=== PATIENT | male | born 1965 ===

== ENCOUNTER 2024-04-01 08:45 | Day surgery (SDC) | payer BC ==
[~2024-04-01] VITALS: Ht 165.1 cm; Wt 76.3 kg
[~2024-04-01 08:45] MED LIST: Keflex500 MG PO; Lactated Ringer's 1,000 ML IV ONE; Lidocaine 1%-Epineph 1:100000 20 ML MDV ONE; Norco 5-325 Ta1 EACH PO; OMEP20ER PO; Prilosec Otc20 MG; TAMS.4ER
[2024-04-01] MEDS ORDERED: ATOR20 PO (09:24)
[2024-04-01] MEDS ORDERED: MELO7.5 PO (09:24)
[2024-04-01] MEDS ORDERED: EUTHYROX25 MC1 PO (09:24)
[2024-04-01] MEDS ORDERED: Lactated Ringer's 1,000 ML IV ONE (09:26)
--- NOTE | 2024-04-01 09:41 | NUR ---
04/01/24 0941 Ivonne Khan TIME OUT AT 0938 TO VERIFY CORRECT PT, PROCEDURE, LOCATION, ALLERGIES AND MEDICATION. PT ELECTED TO PROCEED WITH BLOCK. END AT 0940, 10CC USED. PT TOLERATED WELL
[2024-04-01] MEDS ORDERED: FentaNYL Citrate 50 MCG/ML 2 ML Injection ONE (10:35)
[2024-04-01] MEDS ORDERED: propofoL 20 ML IV ONE (10:36)
[2024-04-01] MEDS ORDERED: Ketorolac Tromethamine 30mg Vial ONE (10:36)
[2024-04-01] MEDS ORDERED: Dexamethasone Sod Phos 10 MG/ML 1ML VIAL ONE (10:36)
[2024-04-01] MEDS ORDERED: Ondansetron HCl 2 MG / ML 2ML Vial ONE (10:36)
--- NOTE | 2024-04-01 13:40 | NUR ---
04/01/24 5212 Gaston Peng PT INSTRUCTED TO MONITOR B/P AT HOME, AND FOLLOW UP WITH PCP IF NEEDED.
[2024-04-01 13:41] VITALS: BP 117/77
== END 2024-04-01 11:20 | disposition home or self-care (01) ==
LOC: ORSCSDS 08:45
PROVIDERS: Orthopaedic Surgery
PROC: 01N54ZZ Release Median Nerve, Percutaneous Endoscopic Approach (ICD-10-PCS; principal; 2024-04-01 10:15)
DX: G56.03 Carpal tunnel syndrome, bilateral upper limbs (principal); K21.9 Gastro-esophageal reflux disease without esophagitis; Z87.891 Personal history of nicotine dependence; Z79.899 Other long term (current) drug therapy
CPT/HCPCS: J1100; J1885; J2405; J2704; J3010; J7120